=== PATIENT | male | born 1955 | race Caucasian/White ===

== ENCOUNTER 2022-08-27 10:16 | Inpatient (IN) | payer MEDICARE, BC ==
[~2022-08-27] VITALS: Ht 175.3 cm; Wt 104.5 kg
[2022-08-27 11:21] LABS: INR 1.1 (0.8-3.0); PROTHROMBIN TIME 12.8 SECONDS (9.7-12.8)
[2022-08-27 11:23] LABS: MUCOUS Present (NOT PRESENT); SQUAMOUS EPITHELIAL None Seen /hpf (0-10); URINE BACTERIA None Seen /hpf (NONE SEEN); URINE WBC 0-2 /hpf (0-2)
[2022-08-27 11:23] LABS: PARTIAL THROMBOPLASTIN TIME 29.8 SECONDS (26.0-37.0)
[2022-08-27 11:26] LABS: URINE APPEARANCE Clear (CLEAR/HAZY); URINE COLOR Yellow (YELLOW); URINE GLUCOSE Negative (NEGATIVE); URINE KETONE 2+ (NEGATIVE); URINE PROTEIN(semi-quant) 1+ (NEGATIVE); URINE UROBILINOGEN 0.2 E.U/dL (0.2-1.0)
[2022-08-27 11:27] LABS: URINE BLOOD 2+ (NEGATIVE); URINE NITRATE Negative (NEGATIVE)
[2022-08-27 11:33] LABS: COLLECTION METHOD CLEAN CATCH
[2022-08-27 12:14] LABS: BASO % 0.4 % (0.0-2.0); EOS % 0.1 % (0.0-4.0); GRAN # 8.2 K/mm3 (1.4-6.5); GRAN % 81.1 % (42.2-75.2); HEMATOCRIT 42.5 % (42.0-52.0); HEMOGLOBIN 14.6 g/dl (13.5-18.0); LYMPH # 1.1 K/mm3 (1.2-3.4); MEAN CELL VOLUME 88 fl (80.0-100.0); MEAN CORPUSCULAR HEMOGLOBIN 30 pg (27-31); MEAN CORPUSCULAR HGB CONC 34 g/dl (33.0-37.0); MEAN PLATELET VOLUME 9.5 fl (7.4-10.4); MONO # 0.7 K/mm3 (0.1-0.6); MONO % 6.5 % (1.7-9.3); PLATELET COUNT 197 K/mm3 (130-400); RED BLOOD COUNT 4.81 M/mm3 (4.20-5.60); REDCELL DISTRIBUTION WIDTH-CV 12.7 % (11.5-14.5)
[2022-08-27 12:30] LABS: ALANINE AMINOTRANSFERASE 17 U/L (0-55); ALBUMIN 3.9 gm/dL (3.4-4.8); ALCOHOL(ethanol),MEDICAL < 10 mg/dL (0-10); ALKALINE PHOSPHATASE 63 U/L (40-150); ANION GAP 12 mmol/L (7-16); AST,SGOT 16 U/L (5-34); BILIRUBIN,TOTAL 1.3 mg/dL (0.2-1.2); BLOOD UREA NITROGEN 14 mg/dL (8-26); CALCIUM 9.2 mg/dL (8.4-10.2); CARBON DIOXIDE 22 mmol/L (23-31); CHLORIDE 99 mmol/L (98-107); GLUCOSE 148 mg/dL (70-99); POTASSIUM 3.7 mmol/L (3.5-4.5); SODIUM 133 mmol/L (136-145)
[2022-08-27 12:37] LABS: TROPONIN-I < 0.010 ng/mL (0.00-0.033)
[2022-08-27] MEDS ORDERED: SINGULAIR 110 MG/TAB PO (13:46)
[2022-08-27] MEDS ORDERED: LIPITOR 10MG10 MG PO (13:46)
[2022-08-27] MEDS ORDERED: ALDACTONE50 MG PO (13:47)
[2022-08-27] MEDS ORDERED: VIAGRA50 M1 PO (13:48)
[2022-08-27 14:59] VITALS: BP 155/91; PULSE 120; TEMP 97.4
[2022-08-27 15:14] LABS: CHOLESTEROL RISK RATIO 4.8
[2022-08-27 18:20] LABS: TRICYCLIC ANTIDEPRESS URINE NEGATIVE
--- NOTE | 2022-08-27 18:30 | NUR ---
PATIENT ARRIVED FROM ED THIS AFTERNOON. PATIENT AGITATED AND WAS NOT FOLLOWING COMMANDS WELL TO GET ON TO THE BED FROM THE STRETCHER. PICC LINE TO RIGHT UPPER ARM DOUBLE LUMEN. PATIENT GIVEN IV ATIVAN AND IM HALDOL BEFORE GOING DOWN TO GET CTA DONE AFTER THE FIRST ATTEMPT FAILING DUE TO PATIENT BEING AGITATED AND CLIMBING OFF THE TABLE. PATIENT WAS ABLE TO GET CTA. PATIENT NOW HAS NORMAL SALINE RUNNING AT 75.HR AND IV ANTIBIOTICS. PATIENT IS TO HAVE LP AND MRI DONE TOMORROW MORNING AT THE SAME TIME. PATIENT FAMILY AT BEDSIDE.
[2022-08-27 20:38] VITALS: BP 155/86; PULSE 128; TEMP 100.2
[2022-08-27 23:48] VITALS: BP 142/77; PULSE 112; TEMP 98.5
[2022-08-28] VITALS (14 sets, daily range): BP systolic 125–173; BP diastolic 72–99; PULSE 69–126; TEMP 97.4–98.6
--- NOTE | 2022-08-28 03:23 | NUR ---
PATIENT HAD EVENTFUL NIGHT. AT BEGINNING OF SHIFT PATIENT UNABLE TO ANSWER ORIENTATION OR ASSESSMENT QUESTIONS. PATIENT NON VERBAL AND STARES BUT IS ABLE TO MOVE IN BED. THROUGHOUT SHIFT PATIENT ABLE TO ANSWER SOME WHAT BUT STILL UNABLE TO ANSWER ORIENTATION QUESTIONS. PATIENT ABLE TO SQUEEZE HANDS WITH RIGHT HAND BUT UNABLE TO SQUEEZE HANDS WITH LEFT HAND. PATIENT ABLE TO DENY PAIN. PATIENT GIVEN ATIVAN X1 DUE TO AGITATION AND RESTLESSNESS. PATIENT CONTINUES TO BE TACHYCARDIC
[2022-08-28 06:28] LABS: HEMATOCRIT 40.5 % (42.0-52.0); HEMOGLOBIN 14.2 g/dl (13.5-18.0); MEAN CELL VOLUME 87 fl (80.0-100.0); MEAN CORPUSCULAR HEMOGLOBIN 31 pg (27-31); MEAN CORPUSCULAR HGB CONC 35 g/dl (33.0-37.0); MEAN PLATELET VOLUME 9.7 fl (7.4-10.4); PLATELET COUNT 199 K/mm3 (130-400); RED BLOOD COUNT 4.65 M/mm3 (4.20-5.60); REDCELL DISTRIBUTION WIDTH-CV 13.2 % (11.5-14.5)
[2022-08-28 06:48] LABS: CALCIUM 8.6 mg/dL (8.4-10.2); CREATININE, serum 1.12 mg/dL (0.72-1.25)
[2022-08-28 08:39] LABS: BAND 3 % (0-10); LYMPHOCYTE 17 % (20.0-51.0); NEUTROPHILS 71 % (42.0-75.2); PLATELET ESTIMATE NORMAL (NORMAL)
--- NOTE | 2022-08-28 08:41 | NUR ---
Vancomycin Initial Dosing Pharmacy Note Ordering provider: Mark Honeycutt MD Indication/duration: EMPIRIC, ?MENINGITIS LABS: SCR 1.2, WBC 11.9 Recommendation: VANCOMYIN ~17 MG/KG Maintenance dose: 1.75 grams every 12 hours Trough goal: 15-20 ug/mL. TROUGH IF CLINICALLY INDICATED
--- NOTE | 2022-08-28 09:00 | NUR ---
Pt assessment completed. Pt is very restless in bed, but is unable to verbalize needs. When asked if he is in pain he states yes and points to his chest, Manju CONTRERAS notified. Pt also states yes to other questions asked, if he needs to have a BM, needs to pee etc. Pt was assisted to the BSC, struggles to follow any commands or staff reorientation. Using extremities equally. No deficits visualized. PICC to RUE. Fall precautions in place.
--- NOTE | 2022-08-28 09:57 | NUR ---
TELE SITTER SET UP ON PT.
--- NOTE | 2022-08-28 10:03 | NUR ---
PT CONTINUES TO TRY AND GET OUT OF BED. PT HAS SISTER BEDSIDE FOR REDIRECTION WHEN STAFF CANNOT BE IN ROOM.
--- NOTE | 2022-08-28 11:40 | NUR ---
Pt continues to be very agitated despite administration of Ativan and Haldol. Family at bedside and frequently reorienting. Pt continues to try and get out of bed and pull at all lines and heart monitor. POC discussed with patient and the family. All questions answered at this time.
--- NOTE | 2022-08-28 12:49 | NUR ---
PT IS TOO AGGITATED TO TAKE VITALS. PT WILL SWING AND PUSH AT STAFF.
--- NOTE | 2022-08-28 14:40 | NUR ---
Naval Architect Specialist met with patient's siblings Lee (ph#[phone]) and Victorina (ph#[phone]) to complete initial intake. Patient is in bed and cannot answer any questions due to altered mental status. Patient lives alone in [place] at the [facility] and is employed at [employer]. Patient's brother Lee lives in a nearby apartment and went to check on patient when he did not show up to work. Patient sees Dr. Granados for primary care and obtains medications from [facility]. Patient does not use any DME and is normally independent with ADLS. Patient has DPOA-HC designating his brother, Lee. SW placed a copy in chart. SW to follow along for discharge recommendations.
[2022-08-28 17:00] LABS: TOTAL PROTEIN,CSF 54 mg/dL (15-45)
[2022-08-28 17:46] LABS: CSF APPEARANCE CLEAR; CSF COLOR COLORLESS; CSF MONONUCLEAR 99 % (70-100); CSF POLYMORPHONUCLEAR 1 % (0-6); CSF RBC < 1 /mm3 (0-0)
--- NOTE | 2022-08-28 19:22 | NUR ---
Pt remained agitated and restless through the shift. Family was at bedside and updated frequently through the day. Pt has full use to all four extremities, no deficit visualized. Pt not able to carry on a conversation. Just will say short phrases like "help me", "I want to sit up". Unable to follow commands. Antwan RICHTER. PICC to RUE. Tele sitter in place but not able to help with redirection. Bed alarm in place.
[2022-08-29] VITALS (7 sets, daily range): BP systolic 117–169; BP diastolic 75–96; PULSE 83–109; TEMP 97.5–99
--- NOTE | 2022-08-29 06:05 | NUR ---
PATIENT WAS FOUND TO BE SITTING ON THE SIDE OF THE BED CALLING OUT FOR SOMEONE. THIS NURSE WENT INTO ROOM AND PATIENT STATED HE WANTED SOME WATER AND HE REALLY NEEDED TO USE THE BATHROOM. THIS NURSE INFORMED PATIENT THAT HE HAD A CATHETER IN PLACE. THIS NURSE THEN ASKED PATIENT TO STATE HIS FULL NAME, , ASKED PATIENT IF HE KNEW WHERE HE WAS AND ASKED PATIENT THE MONTH AND YEAR. PATIENT WAS ABLE TO ANSWER ALL ORIENTATION QUESTIONS APROPRIATELY AND CORRECTLY. OVERNIGHT CAREGIVER STRENGTH IS NOTED TO BE EQUAL AND LE STRENGTH ALSO NOTED TO BE EQUAL. PUPILS ARE EQUAL AND REACTIVE. PATIENT ABLE TO HOLD CONVERSATION APPROPRIATELY BUT IS UNABLE TO RECALL WHAT BROUGHT HIM INTO HOSPITAL OR THE PAST FEW NIGHTS. BEDSIDE SWALLOW DONE BY THIS NURSE AND PATIENT SHOWED NO SIGNS OF ASPIRATION. DAXA CHEMICAL PROCESSOR STATED IT WAS OKAY FOR PATIENT TO HAVE WATER AT THIS TIME. PATIENT DENIES FURTHER QUESTIONS OR CONCERNS AT THIS TIME.
[2022-08-29 08:25] LABS: BASO # 0.1 K/mm3 (0.0-0.2); BASO % 0.7 % (0.0-2.0); EOS # 0.1 K/mm3 (0.0-0.7); EOS % 0.9 % (0.0-4.0); GRAN # 5.4 K/mm3 (1.4-6.5); GRAN % 59.4 % (42.2-75.2); HEMATOCRIT 38.2 % (42.0-52.0); HEMOGLOBIN 13.2 g/dl (13.5-18.0); LYMPH # 2.4 K/mm3 (1.2-3.4); LYMPH % 26.1 % (20.0-51.0); MEAN CELL VOLUME 89 fl (80.0-100.0); MEAN CORPUSCULAR HEMOGLOBIN 31 pg (27-31); MEAN CORPUSCULAR HGB CONC 35 g/dl (33.0-37.0); MEAN PLATELET VOLUME 9.6 fl (7.4-10.4); MONO # 1.1 K/mm3 (0.1-0.6); MONO % 12.4 % (1.7-9.3); PLATELET COUNT 185 K/mm3 (130-400)
[2022-08-29 08:47] LABS: CALCIUM 8.3 mg/dL (8.4-10.2); CREATININE, serum 0.86 mg/dL (0.72-1.25); POTASSIUM 3.1 mmol/L (3.5-4.5)
--- NOTE | 2022-08-29 09:19 | NUR ---
PT AWAKE, ALERT AND ORIENTED X4. STATES HE DOES NOT REMEMBER ANYTHING BEFORE TODAY AT 0400. ABLE TO FOLLOW COMMANDS, PASSED SCREENING SWALLOW. WOLFE REMOVED PER DR. YEBOAH'S ORDER.
--- NOTE | 2022-08-29 10:19 | NUR ---
THIS RN NOTIFIED BY MICROBIOLOGY THAT INSUFFICIENT CSF WAS OBTAINED FOR SEVERAL LABS ORDERED. DR. YEBOAH NOTIFIED.
--- NOTE | 2022-08-29 13:55 | NUR ---
Plywood Patcher attended clinical rounds with the team. Patient doing better and is now alert and oriented. SW met with patient later on with his siblings at bedside. Patient feeling better and does not remember SW visiting yesterday. PT worked with patient today and recommending home with Home Health vs Outpatient Therapy. SW reviewed this recommendation and patient stated he will see how he continues to progress, then make a decision on this. Patient is working to secure a walker from a friend. SW offered to order him one if needed. Discharge Plan: Home with HH vs OP
--- NOTE | 2022-08-29 15:25 | NUR ---
Pt voiding easily after stearns removal this AM.
[2022-08-30 04:30] VITALS: BP 135/67; PULSE 89; TEMP 99.5
[2022-08-30 06:38] LABS: CALCIUM 8.2 mg/dL (8.4-10.2); CREATININE, serum 0.89 mg/dL (0.72-1.25); POTASSIUM 3.6 mmol/L (3.5-4.5)
[2022-08-30 07:00] VITALS: BP 133/79; PULSE 85; TEMP 97.7
[2022-08-30 07:29] LABS: BASO # 0.1 K/mm3 (0.0-0.2); BASO % 1.1 % (0.0-2.0); EOS # 0.2 K/mm3 (0.0-0.7); EOS % 2.6 % (0.0-4.0); GRAN # 3.8 K/mm3 (1.4-6.5); GRAN % 53.8 % (42.2-75.2); HEMOGLOBIN 12.7 g/dl (13.5-18.0); LYMPH # 2.1 K/mm3 (1.2-3.4); LYMPH % 29.8 % (20.0-51.0); MEAN CELL VOLUME 88 fl (80.0-100.0); MEAN CORPUSCULAR HEMOGLOBIN 31 pg (27-31); MEAN CORPUSCULAR HGB CONC 35 g/dl (33.0-37.0); MEAN PLATELET VOLUME 10.2 fl (7.4-10.4); MONO # 0.8 K/mm3 (0.1-0.6); MONO % 12.1 % (1.7-9.3); PLATELET COUNT 179 K/mm3 (130-400); RED BLOOD COUNT 4.16 M/mm3 (4.20-5.60); REDCELL DISTRIBUTION WIDTH-CV 13.2 % (11.5-14.5)
--- NOTE | 2022-08-30 07:31 | NUR ---
Pt resting quietly in chair upon entering room. When woken up, the patient was alert and oriented to his name, , day, and where he was at. Pt has no complaints of pain, but reports not having a bowel movement since being admitted. Pt has a PICC line with 75ml/hr of NS in the LIZETH that is free of redness and swelling. The call light was placed within reach and pt was notified to call if he needed anything. Primary nurse was notified.
[2022-08-30 07:40] LABS: HEMATOCRIT 36.7 % (42.0-52.0)
--- NOTE | 2022-08-30 07:50 | NUR ---
PT AWAKE, ALERT AND ORIENTED. COMPLAINTS OF DISCOMFORT FROM BED/CHAIR, BUT NO OTHER PAIN NOTED. ASSESSMENT INCLUDING NEURO CHECK COMPLETED. PT IN BED WITH CALL LIGHT WITHIN REACH.
[2022-08-30 11:30] VITALS: BP 133/81; PULSE 95; TEMP 97.7
[2022-08-30] MEDS ORDERED: ROCEPHIN 2GM VIAL21 IV (12:17)
--- NOTE | 2022-08-30 15:03 | NUR ---
Mapping Engineer collaborated with Hospitalist who advised patient will need IV Rocephin set up through the [facility]. Anticipated discharge date is tomorrow. SW met with patient to review discharge plan. Patient is agreeable to outpatient IV antibiotics through [facility], starting Friday. SW discussed Home Health or outpatient PT with patient who declined both stating he can just do exercises at home. SW presented and reviewed IM form with patient who verbalized understanding and provided signature. LORIN placed form in chart and provided copy to patient. LORIN contacted Sherine at [facility] and faxed referral with orders. No prior auth required. First appointment scheduled for Friday at 0800. Appointment provided to patient and was also put in discharge orders. Discharge Plan: Home
[2022-08-30 15:21] VITALS: BP 124/70; PULSE 88; TEMP 97.9
[2022-08-30 19:19] VITALS: BP 133/79; PULSE 79; TEMP 98.5
--- NOTE | 2022-08-30 23:29 | NUR ---
Pt sitting down in recliner for shift assessment at 2130. A&O x4. Pt reported not having any pain or discomfort. No medications listed in the emar for this evening. Pt expresses feeling ready to leave and wants to sleep in the recliner due to the bed being very uncomfortable. Belongings and call light are withinr reach.
[2022-08-30 23:32] VITALS: BP 142/80; PULSE 80; TEMP 98.4
[2022-08-31 03:51] VITALS: BP 148/86; PULSE 78; TEMP 98.3
[2022-08-31 06:01] LABS: BASO # 0.1 K/mm3 (0.0-0.2); BASO % 1.2 % (0.0-2.0); EOS # 0.2 K/mm3 (0.0-0.7); EOS % 3.2 % (0.0-4.0); GRAN % 43.6 % (42.2-75.2); HEMATOCRIT 37.3 % (42.0-52.0); HEMOGLOBIN 12.9 g/dl (13.5-18.0); LYMPH # 2.6 K/mm3 (1.2-3.4); LYMPH % 38.9 % (20.0-51.0); MEAN CELL VOLUME 89 fl (80.0-100.0); MEAN CORPUSCULAR HEMOGLOBIN 31 pg (27-31); MEAN CORPUSCULAR HGB CONC 35 g/dl (33.0-37.0); MEAN PLATELET VOLUME 10.1 fl (7.4-10.4); MONO # 0.8 K/mm3 (0.1-0.6); MONO % 11.8 % (1.7-9.3); PLATELET COUNT 174 K/mm3 (130-400); RED BLOOD COUNT 4.17 M/mm3 (4.20-5.60); REDCELL DISTRIBUTION WIDTH-CV 13.1 % (11.5-14.5)
[2022-08-31 06:19] LABS: CALCIUM 8.9 mg/dL (8.4-10.2); CREATININE, serum 0.89 mg/dL (0.72-1.25); POTASSIUM 3.7 mmol/L (3.5-4.5)
[2022-08-31 07:24] VITALS: BP 141/78; PULSE 85; TEMP 98.1
--- NOTE | 2022-08-31 08:14 | NUR ---
Pt assessment complete. Pt is sitting up in the recliner upon entry, he is A/O x4. His breathing is even and unlabored on RA. Pt denies SOB. NO pain at this time. Denies any N/V. States he feels a little foggy but denies any headache. POC discussed with patient who verbalizes understanding. No needs at this time. Call light within reach.
--- NOTE | 2022-08-31 09:16 | NUR ---
Health Underwriter confirms plan of care with Mercedes WILSON and [employer] Development Advisor. Mercedes WILSON confirms with [facility] that services are established to begin for patient tomorrow morning at 08:00. *Discharge to home with OP IV antibiotic at [facility]*
--- NOTE | 2022-08-31 10:44 | NUR ---
Discharge paperwork and instructions reviewed with patient and his sister. All questions answered at this time. Pt sent home with PICC line for OP antibiotics. Care instructions reviewed with patient. Wheeled patient out of facility in a w/c at this time.
[2022-09-01] MEDS ORDERED: VITAMIN D31000 I1 PO (08:39)
[2022-09-01] MEDS ORDERED: ZYRTEC 10MG10 MG PO (09:52)
== END 2022-08-31 10:46 | disposition home or self-care (01) | DRG 97 ==
LOC: COL.ER 10:16 → MEDICAL 12:55 → COL.ER 12:55 → MEDICAL 12:55
PROVIDERS: Emergency Medicine; Internal Medicine; Physician Assistant; ADMIT Internal Medicine
PROC: 02HV33Z Insertion of Infusion Device into Superior Vena Cava, Percutaneous Approach (ICD-10-PCS; principal; 2022-08-27)
PROC: 009U3ZX Drainage of Spinal Canal, Percutaneous Approach, Diagnostic (ICD-10-PCS; 2022-08-28)
PROC: B01B1ZZ Fluoroscopy of Spinal Cord using Low Osmolar Contrast (ICD-10-PCS; 2022-08-28)
DX: G03.9 Meningitis, unspecified (principal); G93.41 Metabolic encephalopathy; E87.1 Hypo-osmolality and hyponatremia; J90 Pleural effusion, not elsewhere classified; R47.01 Aphasia; F05 Delirium due to known physiological condition; E78.5 Hyperlipidemia, unspecified; J32.0 Chronic maxillary sinusitis; I16.0 Hypertensive urgency; Z20.822 Contact with and (suspected) exposure to COVID-19; M19.90 Unspecified osteoarthritis, unspecified site; I10 Essential (primary) hypertension; Z85.46 Personal history of malignant neoplasm of prostate; Z90.79 Acquired absence of other genital organ(s); Z23 Encounter for immunization
CPT/HCPCS: A9575; C1751; C1892; G0378; J0133; J0456; J0692; J0696; J1630; J1644; J2060; J2250; J2704; J3370; J3486; J7030; J7040; J7050; Q9967

== ENCOUNTER 2022-09-03 08:00 | Outpatient (RCR) | payer MEDICARE, BC ==
[2022-09-01 08:40] VITALS: BP 166/96; PULSE 80; TEMP 98.4
[2022-09-02 08:34] VITALS: BP 157/80; PULSE 80; TEMP 98.1
[~2022-09-03 08:00] MED LIST: ALDACTONE50 MG PO; LIPITOR 10MG10 MG PO; ROCEPHIN 2GM VIAL21 IV; SINGULAIR 110 MG/TAB PO; VIAGRA50 M1 PO; VITAMIN D31000 I1 PO; ZYRTEC 10MG10 MG PO
[2022-09-03 08:06] VITALS: BP 166/80; PULSE 105; PULSE 99; TEMP 98.4
--- NOTE | 2022-09-03 08:50 | NUR ---
Dressing to Rt upper arm remains clean, dry and intact, and pt is free of complaints. S/s of infection or reasons to call for evaluation reviewed with pt and he expresses understanding. He exits dept with steady gait.
== END 2022-09-03 08:50 | disposition home or self-care (01) ==
LOC: EUO 08:00
DX: G03.9 Meningitis, unspecified (principal)
CPT/HCPCS: J0696

== ENCOUNTER → 2022-09-25 | Outpatient (CLI) | payer MEDICARE, BC | LOC: COL.RAD 06:43 | DX: J32.9 Chronic sinusitis, unspecified (principal) ==